=== PATIENT | female | born 1980 | race Caucasian/White ===

== ENCOUNTER 2019-09-20 03:26 | Observation (INO) | payer OTHER ==
[~2019-09-20] VITALS: Ht 160 cm; Wt 72.6 kg
[2019-09-20 03:34] VITALS: BP_SYST 131
[2019-09-20 04:34] LABS: BASOPHILS % (AUTO) 0.3 % (0.0-2.0); EOSINOPHILS # (AUTO) 0.3 K/uL (0.0-0.4); EOSINOPHILS % (AUTO) 3.1 % (0.0-4.0); HEMATOCRIT 40.8 % (36-48); HEMOGLOBIN 14.2 g/dL (12.0-16.0); LYMPHOCYTES % (AUTO) 12.2 % (20.5-51.5); MEAN CORPUSCULAR HEMOGLOBIN 30 pg (27-31); MEAN CORPUSCULAR HGB CONC 35 % (32-36); MEAN CORPUSCULAR VOLUME 86 fL (79.0-98.0); MONOCYTES # (AUTO) 0.4 K/uL (0.0-1.0); MONOCYTES % (AUTO) 5.4 % (1.7-9.3); NEUTROPHILS # (AUTO) 6.5 K/uL (1.8-7.7); PLATELET COUNT (AUTO) 239 K/uL (130-430); RED BLOOD CELL COUNT(AUTO) 4.72 MIL/uL (4.2-6.2); WHITE BLOOD COUNT (AUTO) 8.2 K/uL (4.8-10.8)
[2019-09-20 04:48] LABS: CALCIUM 8.7 mg/dL (8.4-11.0); CREATININE 0.68 mg/dL (0.55-1.30); POTASSIUM 3.7 mmol/L (3.5-5.1)
[2019-09-20 04:54] LABS: ALBUMIN 4.1 g/dL (3.4-4.8); TOTAL BILIRUBIN 0.4 mg/dL (0.0-1.0)
[2019-09-20] MEDS ORDERED: ASPIRIN 81 MG TAB.CHEW PO ONE (06:45)
[2019-09-20] MEDS ORDERED: ALPRAZolam 0.25 MG TABLET PO PRN (06:45)
[2019-09-20 06:58] LABS: BARBITURATE, URINE NEGATIVE (NEG <=200); BENZODIAZEPINE, URINE NEGATIVE (NEG <=150); CANNABINOID, URINE NEGATIVE (NEG <=50); COCAINE, URINE NEGATIVE (NEG <=150); METHAMPHETAMINES SCREEN,URINE NEGATIVE (NEG <=500); OPIATE, URINE NEGATIVE (NEG <=100); PHENCYCLIDINE SCREEN,URINE NEGATIVE (NEG <=25); UR TRICYCLIC ANTIDEPRESSANTS NEGATIVE (NEG <=300); URINE AMPHETAMINE NEGATIVE (NEG <=500); URINE METHADONE NEGATIVE (NEG <=200); URINE OXYCODONE SCREEN NEGATIVE (NEG <=100); URINE PROPOXYPHENE SCREEN NEGATIVE (NEG <=300)
[2019-09-20 08:00] VITALS: BP_SYST 126
[2019-09-20 08:07] VITALS: BP_SYST 126
[2019-09-20] MEDS ORDERED: METOPROLOL SUCCINATE 25 MG TAB.SR.24H (TOPROL XL) PO ONE (09:00)
[2019-09-20] MEDS ORDERED: busPIRone HCL 5 MG TABLET PO ONE (09:15)
[2019-09-20 09:41] LABS: THYROID STIMULATING HORMONE 3.06 uIu/mL (0.36-3.74)
[2019-09-20 16:34] VITALS: BP_SYST 107
[2019-09-20] MEDS ORDERED: ACETAMINOPHEN 325 MG TABLET PO PRN (19:45)
[2019-09-20] MEDS ORDERED: PANTOPRAZOLE SODIUM 40 MG TAB PO SCH (20:00)
[2019-09-20] MEDS ORDERED: MAG-AL HYDROX/SIMETH 30 ML UDC PO PRN (20:00)
[2019-09-20] MEDS: busPIRone HCL 5 MG TABLET PO SCH (20:46)
[2019-09-20 21:25] VITALS: BP_SYST 116
[2019-09-21] VITALS: BP_SYST 118
[2019-09-21] MEDS ORDERED: PANTOPRAZOLE SODIUM 40 MG TAB PO SCH (07:00)
[2019-09-21 07:55] VITALS: BP_SYST 120
[2019-09-21] MEDS ORDERED: METOPROLOL SUCCINATE 25 MG TAB.SR.24H (TOPROL XL) PO SCH (09:00)
[2019-09-21] MEDS: busPIRone HCL 5 MG TABLET PO SCH (09:00)
[2019-09-21 12:10] VITALS: BP_SYST 105
[2019-09-21] MEDS ORDERED: BUSP5TAB3 PO (12:27)
[2019-09-21] MEDS ORDERED: PRO40 PO (12:27)
[2019-09-21] MEDS ORDERED: METO-540 PO (12:27)
[2019-09-21 13:42] VITALS: BP_SYST 105
== END 2019-09-21 14:25 | disposition home or self-care (01) ==
LOC: SED 03:26 → STU 06:38
PROVIDERS: ADMIT Internal Medicine; ATTEND Internal Medicine
DX: R07.89 Other chest pain (principal); R55 Syncope and collapse; R00.2 Palpitations; F41.9 Anxiety disorder, unspecified; Z98.890 Other specified postprocedural states
CPT/HCPCS: 36415 ×2; 71045; 80053; 80061; 80307; 82550; 83735; 84443; 84484 ×2; 85025; 93005 ×2; 93306; 99285; G0378 ×2